=== PATIENT | female | born 1980 | race African-American/Black ===

== ENCOUNTER 2019-10-09 02:44 | Emergency (ER) | payer OTHER, MEDICARE ==
[~2019-10-09] VITALS: Ht 165.1 cm; Wt 74.8 kg
[2019-10-09] MEDS ORDERED: ACETAMINOPHEN 325 MG TAB ONE (03:21)
--- NOTE | 2019-10-09 03:24 | Emergency Department Note ---
History of Present Illnes History of Present Illness Chief Complaint: nasal congestion, f/c History of Present Illness This is a 38 year old female . was doing well prior to this. 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 Onset (how long ago): week(s) (1) Location: entire body Quality: achy Radiation: Reports non-radiation Severity: moderate Onset quality: gradual Duration (how long): week(s) (1) Timing of current episode: constant Progression: waxing and waning Chronicity: new Context: Denies recent illness, Denies recent surgery, Denies recent immobilization, Denies recent travel, Denies trauma/injury, Denies new medications, Denies hx of DVT/PE, Denies non-compliance w/ medications Relieving factors: rest Exacerbating factors: movement Associated symptoms: Reports cough Treatments prior to arrival: none Past Medical/Family History Physician Review I have reviewed the patient's past medical and family history. Any updates have been documented here. Past Medical History Recent Fever: No Clinical Suspicion of Infectio: No New/Unexplained Change in Ment: No Past Medical History: None Past Surgical History: None Social History Smoking Cessation: Current every day smoker Alcohol Use: Social Any Illegal Drug Use: No TB Exposure/Symptoms: No Physically hurt or threatened: No Family History Family history of heart diseas: No Other Any Pre-Existing Lines (PICC,: No Is patient up to date on immun: No Review of Systems Review of Systems Constitutional: Reports as per HPI EENTM: Reports as per HPI Cardiovascular: Reports no symptoms Respiratory: Reports as per HPI Gastrointestinal: Reports no symptoms Genitourinary: Reports no symptoms Musculoskeletal: Reports as per HPI Integumentary: Reports no symptoms Neurological: Reports no symptoms Psychological: Reports no symptoms Endocrine: Reports no symptoms Hematological/Lymphatic: Reports no symptoms Review of other systems: All other systems negative Physical Exam Related Data Allergies: Coded Allergies: Penicillins (Verified Allergy, Intermediate, 10/09/19) codeine (Verified Allergy, Intermediate, 10/09/19) latex (Verified Allergy, Intermediate, 10/09/19) morphine (Verified Allergy, Intermediate, 10/09/19) Vital signs reviewed: Yes Physical Exam CONSTITUTIONAL Constitutional: Present well-developed, Present well-nourished HENT HENT: Present normocephalic, Present atraumatic, Present nose normal, Present erythema HENT L/R: Present left ext ear normal, Present right ext ear normal, Present other (+sinus tenderness) EYES Eyes: Reports PERRL, Reports conjunctivae normal NECK Neck: Present ROM normal PULMONARY Pulmonary: Present effort normal, Present other (forced expiratory wheezes) CARDIOVASCULAR Cardiovascular: Present regular rhythm, Present heart sounds normal, Present capillary refill normal, Present normal rate GASTROINTESTINAL Abdominal: Present soft, Present nontender, Present bowel sounds normal GENITOURINARY Genitourinary: Present exam deferred SKIN Skin: Present warm, Present dry MUSCULOSKELETAL Musculoskeletal: Present ROM normal NEUROLOGICAL Neurological: Present alert, Present oriented x 3, Present no gross motor or sensory deficits PSYCHOLOGICAL Psychological: Present mood/affect normal, Present judgement normal Results Laboratory Laboratory comments covid pending Assessment & Plan Medical Decision Making MDM take rxed meds below. Assessment & Plan Final Impression: (1) Sinusitis (2) Acute bronchitis (3) Reactive airway disease (4) Diarrhea Depart Disposition: HOME, SELF-longterm Meds Active Scripts Azithromycin (AZITHROMYCIN) 500 Mg Tablet, 500 MG PO DAILY, #5 TAB Prov:HAL LIGHT 10/09/19 Prednisone (PREDNISONE) 20 Mg Tab, 60 MG PO DAILY, #18 TAB Prov:HAL LIGHT 10/09/19 Albuterol Sulf* (PROAIR HFA INHALER*) 8.5 Gm Inh, 2 INH PO Q4HR PRN for WHEEZING, #1 INH prn cough, wheezing. shortness of breath Prov:HAL LIGHT 10/09/19 Loperamide Hcl (IMODIUM A-D) 1 Mg/7.5 Ml Liquid, 2 TAB PO Q6H PRN for DIARRHEA, #24 TAB Prov:HAL LIGHT 10/09/19 Ondansetron (ONDANSETRON ODT) 8 Mg Tab.rapdis, 4 MG PO Q4HR PRN for NAUSEA AND VOMITING, #30 TAB Prov:HAL LIGHT 10/09/19 Medications in the ED Acetaminophen 975 mg STK-MED ONCE .ROUTE ; Start 10/09/19 at 03:21; Stop 10/09/19 at 03:16; Status DC HAL LIGHT Oct 09, 2019 03:24
[2019-10-09] MEDS ORDERED: KETOROLAC TROMETHAMINE 60 MG/2 ML VIAL IM ONE (03:30)
[2019-10-09] MEDS ORDERED: KETOROLAC TROMETHAMINE 60 MG/2 ML VIAL ONE (04:02)
[2019-10-09 04:17] VITALS: BP 122/85
[2019-10-09] MEDS ORDERED: ONDANSETRON ODT8 MG PO (04:20)
[2019-10-09] MEDS ORDERED: PREDNISONE20 MG PO (04:20)
[2019-10-09] MEDS ORDERED: PROAIR HFA INH8.5 GM PO (04:20)
[2019-10-09] MEDS ORDERED: AZITHROMYCIN500 MG PO (04:20)
[2019-10-09] MEDS ORDERED: IMODIUM A-1 MG/7.5 M PO (04:20)
== END 2019-10-09 04:55 | disposition home or self-care (01) ==
LOC: FSED 02:44 → EDBD 02:44 → FSED 04:55
DX: R19.7 Diarrhea, unspecified (principal); R05 Cough; R11.0 Nausea; J20.9 Acute bronchitis, unspecified; J45.909 Unspecified asthma, uncomplicated; J32.9 Chronic sinusitis, unspecified; F17.210 Nicotine dependence, cigarettes, uncomplicated
CPT/HCPCS: 87635; 99283; J1885